=== PATIENT | female | born 1960 | race Caucasian/White ===

== ENCOUNTER 2017-09-24 14:02 | Emergency (ER) | payer OTHER | END 2017-09-24 14:44 | disposition home or self-care (01) | LOC: E/R 14:02 | DX: B35.3 Tinea pedis (principal); L30.9 Dermatitis, unspecified; I10 Essential (primary) hypertension; I25.2 Old myocardial infarction; Z79.82 Long term (current) use of aspirin | CPT/HCPCS: 99284; Z7502 ==

== ENCOUNTER 2018-11-29 07:58 | Day surgery (SDC) | payer OTHER ==
[~2018-11-29 07:58] MED LIST: ETOMIDATE 20 MG INJ
[2018-11-29] MEDS ORDERED: FENTAnyl 50 MCG/ML VIAL (09:49)
[2018-11-29] MEDS ORDERED: PROPOFOL 20 ML (09:49)
[2018-11-29] MEDS ORDERED: LIDOCAINE 2% (SDV) 5 ML INJ (09:49)
== END 2018-11-29 13:17 | disposition home or self-care (01) ==
LOC: GIL 07:58
DX: Z12.11 Encounter for screening for malignant neoplasm of colon (principal); K29.30 Chronic superficial gastritis without bleeding; K64.9 Unspecified hemorrhoids; K20.8 Other esophagitis
CPT/HCPCS: 43239; 88305; 88312